=== PATIENT | female | born 1990 | race African-American/Black ===

== ENCOUNTER 2022-05-23 05:21 | Emergency (ER) | payer SELFPAY ==
[2022-05-23 05:26] VITALS: BP 146/105
[2022-05-23 05:30] VITALS: BP 152/103
[2022-05-23 05:45] VITALS: BP 143/100
[2022-05-23 06:00] VITALS: BP 124/82
[2022-05-23 06:10] VITALS: BP 124/82
== END 2022-05-23 06:15 | disposition home or self-care (01) | DRG 563 ==
LOC: ED 05:21
DX: S93.401A Sprain of unspecified ligament of right ankle, initial encounter (principal); S93.601A Unspecified sprain of right foot, initial encounter; X50.1XXA Overexertion from prolonged static or awkward postures, initial encounter